=== PATIENT | male | born 1975 | race Caucasian/White ===

== ENCOUNTER 2020-09-23 01:32 | Inpatient (IN) ==
[2020-09-23] MEDS ORDERED: ENOXAPARIN 120 MG/0.8 ML SYRINGE SUBCUT STA (01:45)
[2020-09-23] MEDS ORDERED: DEXTROSE 50% 25 GM/50 ML VIAL IV PRN (02:53)
[2020-09-23] MEDS ORDERED: NICOTINE 21 MG/24 HR PATCH TRANSDERM PRN (02:53)
[2020-09-23] MEDS ORDERED: ONDANSETRON 4 MG/2 ML VIAL IV PRN (02:53)
[2020-09-23] MEDS ORDERED: GLUCAGON 1 MG VIAL IM PRN (02:53)
[2020-09-23] MEDS: MORPHINE 4 MG/1 ML VIAL IV PRN (03:05)
[2020-09-23] MEDS ORDERED: DEXTROSE 50% 25 GM/50 ML SYRINGE IV PRN (03:21)
[2020-09-23 05:45] LABS: Basophils # 0.1 10*3/uL (0.0-0.2); Basophils % 0.5 % (0.0-0.8); Eosinophils # 0.2 10*3/uL (0.0-0.87); Eosinophils % 1.4 % (0.00-10.9); Hematocrit 43.5 VOL% (42.0-52.0); Hemoglobin 13.9 GM/DL (14.0-18.0); Immature Granulocytes % 0.5 %; Immature Granulocytes Absolute 0.05 #; Lymphocytes % 27.3 % (21.2-54.2); Mean Corpuscular Volume 93.3 FL (87-102); Monocytes % 5.1 % (1.7-12.7); Neutrophils % 65.2 % (38.7-73.9); Platelet Count 252 T/CUMM (130-400); Red Blood Count 4.66 MC/CUMM (3.8-5.5); Red Cell Distribution Width 14.4 % (9.3-17.3); White Blood Count 11.1 T/CUMM (4-12)
[2020-09-23 06:01] LABS: Albumin 3.5 G/DL (3.4-5.0); Bilirubin,Total 0.7 MG/DL (0.2-1.0); Osmolality,Calculated 281.4 MOS/KG (273-304); Risk Ratio 2.38; Thyroid Stimulating Hormone 4.97 uIU/ml (0.358-3.74); Total Protein 6.9 G/DL (6.4-8.3); VLDL CHOLESTEROL 20.4 MG/DL
[2020-09-23] MEDS ORDERED: ASPIRIN CHEW 81 MG TABLET PO SCH (09:00)
[2020-09-23] MEDS: carvediloL 3.125 MG TABLET PO SCH ×2 (09:42→17:15)
[2020-09-23] MEDS: FUROSEMIDE 40 MG/4 ML VIAL IV SCH ×2 (09:42→15:18)
[2020-09-23] MEDS: ATORVASTATIN 40 MG TABLET PO SCH (09:42)
[2020-09-23] MEDS: ASPIRIN EC 81 MG TABLET PO SCH (09:42)
[2020-09-23] MEDS: SACUBITRIL/VALSARTAN 49-51 MG TABLET PO SCH ×2 (09:43→20:55)
[2020-09-23] MEDS: NITROGLYCERIN 2% OINT 1 INCH/GM PACK TOP SCH ×3 (11:27→23:04)
[2020-09-23 11:34] LABS: Barbiturates Screen,Urine Negative (Negative); Benzodiazepines Screen,Urine Negative (Negative); Cannabinoid Screen,Urine Negative (Negative); Opiate Screen,Urine Negative (Negative); Phencyclidine Screen,Urine Negative (Negative)
[2020-09-23] MEDS: ENOXAPARIN 100 MG/ML SYRINGE SUBCUT SCH (15:18)
[2020-09-24] MEDS: ENOXAPARIN 100 MG/ML SYRINGE SUBCUT SCH ×2 (02:37→15:42)
[2020-09-24] MEDS: NITROGLYCERIN 2% OINT 1 INCH/GM PACK TOP SCH ×3 (06:11→17:02)
[2020-09-24 07:33] LABS: Calcium 8.6 MG/DL (8.5-10.1); Osmolality,Calculated 274.8 MOS/KG (273-304)
[2020-09-24 08:38] LABS: Free T4 (Free Thyroxine) 1.21 NG/DL (0.76-1.46); Thyroid Stimulating Hormone 3.62 uIU/ml (0.358-3.74)
[2020-09-24] MEDS: FUROSEMIDE 40 MG/4 ML VIAL IV SCH ×2 (08:57→15:42)
[2020-09-24] MEDS: carvediloL 6.25 MG TABLET PO SCH ×2 (09:05→17:02)
[2020-09-24] MEDS: ATORVASTATIN 40 MG TABLET PO SCH (09:05)
[2020-09-24] MEDS: ASPIRIN EC 81 MG TABLET PO SCH (09:05)
[2020-09-24] MEDS: SACUBITRIL/VALSARTAN 49-51 MG TABLET PO SCH ×2 (09:05→21:47)
[2020-09-24] MEDS ORDERED: HYOSCYAMINE 0.125 MG TABLET PO PRN (11:51)
[2020-09-24] MEDS: NICOTINE 21 MG/24 HR PATCH TRANSDERM SCH (12:07)
[2020-09-25] MEDS: NITROGLYCERIN 2% OINT 1 INCH/GM PACK TOP SCH ×3 (00:48→21:52)
[2020-09-25] MEDS: ENOXAPARIN 100 MG/ML SYRINGE SUBCUT SCH ×2 (04:57→17:52)
[2020-09-25 06:02] LABS: Basophils # 0.1 10*3/uL (0.0-0.2); Basophils % 0.8 % (0.0-0.8); Eosinophils # 0.3 10*3/uL (0.0-0.87); Hemoglobin 16.9 GM/DL (14.0-18.0); Immature Granulocytes % 0.9 %; Immature Granulocytes Absolute 0.08 #; Lymphocytes # 2.3 10*3/uL (1.4-4.0); Lymphocytes % 25.4 % (21.2-54.2); Mean Corpuscular HGB Conc 33.1 GM/DL (32-36); Mean Corpuscular Volume 89.6 FL (87-102); Mean Platelet Volume 10.9 FL (9.6-12.0); Monocytes % 7.9 % (1.7-12.7); Platelet Count 247 T/CUMM (130-400); Red Blood Count 5.69 MC/CUMM (3.8-5.5); White Blood Count 8.9 T/CUMM (4-12)
[2020-09-25 06:20] LABS: Calcium 8.6 MG/DL (8.5-10.1); Osmolality,Calculated 277.7 MOS/KG (273-304)
[2020-09-25] MEDS ORDERED: POTASSIUM CHLORIDE 20 MEQ TABLET PO PRN (07:32)
[2020-09-25] MEDS ORDERED: POTASSIUM CHLORIDE 20 MEQ TABLET PO ONE (07:45)
[2020-09-25] MEDS: ATORVASTATIN 40 MG TABLET PO SCH (08:58)
[2020-09-25] MEDS: carvediloL 12.5 MG TABLET PO SCH ×2 (08:59→17:51)
[2020-09-25] MEDS: FUROSEMIDE 40 MG/4 ML VIAL IV SCH ×2 (08:59→17:52)
[2020-09-25] MEDS: ASPIRIN EC 81 MG TABLET PO SCH (08:59)
[2020-09-25] MEDS: NICOTINE 21 MG/24 HR PATCH TRANSDERM SCH (09:02)
[2020-09-25] MEDS: SACUBITRIL/VALSARTAN 49-51 MG TABLET PO SCH ×2 (09:04→21:40)
[2020-09-25] MEDS ORDERED: POTASSIUM CHLORIDE RIDER 10 MEQ in PREMIX 1 EACH IV PRN (13:29)
[2020-09-25] MEDS ORDERED: MAGNESIUM SULF RIDER 2 GM in PREMIX 1 EACH IV PRN (13:29)
[2020-09-25] MEDS: ISOSORBIDE MONONITRATE 30 MG TABLET PO SCH (17:51)
[2020-09-25] MEDS: MORPHINE 4 MG/1 ML VIAL IV PRN ×2 (20:29→23:51)
[2020-09-25] MEDS: buPROPion SR 100 MG TABLET PO SCH (21:40)
[2020-09-26] MEDS: MORPHINE 4 MG/1 ML VIAL IV PRN ×2 (04:20→20:00)
[2020-09-26 06:15] LABS: Basophils # 0.1 10*3/uL (0.0-0.2); Eosinophils # 0.3 10*3/uL (0.0-0.87); Eosinophils % 2.6 % (0.00-10.9); Hematocrit 52.1 VOL% (42.0-52.0); Hemoglobin 17.3 GM/DL (14.0-18.0); Immature Granulocytes % 0.7 %; Immature Granulocytes Absolute 0.07 #; Lymphocytes # 3.1 10*3/uL (1.4-4.0); Lymphocytes % 29.2 % (21.2-54.2); Mean Corpuscular HGB Conc 33.2 GM/DL (32-36); Mean Platelet Volume 10.6 FL (9.6-12.0); Monocytes % 8.3 % (1.7-12.7); Neutrophils % 58.2 % (38.7-73.9); Platelet Count 277 T/CUMM (130-400); Red Blood Count 5.79 MC/CUMM (3.8-5.5); Red Cell Distribution Width 14.2 % (9.3-17.3); White Blood Count 10.5 T/CUMM (4-12)
[2020-09-26 06:33] LABS: Calcium 9.2 MG/DL (8.5-10.1); Calcium 9.3 MG/DL (8.5-10.1); Osmolality,Calculated 273.8 MOS/KG (273-304); Osmolality,Calculated 275.7 MOS/KG (273-304)
[2020-09-26 06:39] LABS: Eosinophils 3 % (0-10); Hypochromasia 1+; Lymphocytes 24 % (20-55); Microcytosis 1+; Platelet Estimate Adequate; Segmented Neutrophils 66 % (50-85); Total Cells Counted 100
[2020-09-26] MEDS ORDERED: MAGNESIUM SULF RIDER 2 GM in PREMIX 1 EACH IV PRN (08:48)
[2020-09-26] MEDS ORDERED: POTASSIUM CHLORIDE RIDER 10 MEQ in PREMIX 1 EACH IV PRN (08:48)
[2020-09-26] MEDS: ASPIRIN EC 81 MG TABLET PO SCH (09:11)
[2020-09-26] MEDS: ISOSORBIDE MONONITRATE 30 MG TABLET PO SCH (09:11)
[2020-09-26] MEDS: FUROSEMIDE 40 MG TABLET PO SCH (09:11)
[2020-09-26] MEDS: carvediloL 12.5 MG TABLET PO SCH ×2 (09:11→17:14)
[2020-09-26] MEDS: SACUBITRIL/VALSARTAN 49-51 MG TABLET PO SCH ×2 (09:12→20:41)
[2020-09-26] MEDS: ATORVASTATIN 40 MG TABLET PO SCH (09:12)
[2020-09-26] MEDS: buPROPion SR 100 MG TABLET PO SCH (09:12)
[2020-09-26] MEDS: ENOXAPARIN 100 MG/ML SYRINGE SUBCUT SCH ×2 (09:15→20:41)
[2020-09-26] MEDS: NICOTINE 21 MG/24 HR PATCH TRANSDERM SCH (09:16)
[2020-09-26] MEDS: buPROPion SR 150 MG TABLET PO SCH (20:41)
[2020-09-27] MEDS: MORPHINE 4 MG/1 ML VIAL IV PRN ×2 (00:28→03:37)
[2020-09-27] MEDS ORDERED: MORPHINE 4 MG/1 ML VIAL ONE (03:30)
[2020-09-27 05:11] LABS: Basophils # 0.1 10*3/uL (0.0-0.2); Basophils % 1.1 % (0.0-0.8); Eosinophils # 0.3 10*3/uL (0.0-0.87); Eosinophils % 2.9 % (0.00-10.9); Hematocrit 52.5 VOL% (42.0-52.0); Immature Granulocytes % 0.6 %; Immature Granulocytes Absolute 0.06 #; Lymphocytes # 3.1 10*3/uL (1.4-4.0); Lymphocytes % 29.3 % (21.2-54.2); Mean Corpuscular HGB Conc 32.4 GM/DL (32-36); Mean Corpuscular Volume 91.5 FL (87-102); Mean Platelet Volume 10.5 FL (9.6-12.0); Monocytes % 9.9 % (1.7-12.7); Neutrophils % 56.2 % (38.7-73.9); Platelet Count 261 T/CUMM (130-400); Red Blood Count 5.74 MC/CUMM (3.8-5.5); Red Cell Distribution Width 14.1 % (9.3-17.3); White Blood Count 10.4 T/CUMM (4-12)
[2020-09-27 05:29] LABS: Calcium 9.5 MG/DL (8.5-10.1); Osmolality,Calculated 276.7 MOS/KG (273-304)
[2020-09-27 05:37] LABS: Eosinophils 5 % (0-10); Lymphocytes 29 % (20-55); Platelet Estimate Adequate; Segmented Neutrophils 60 % (50-85); Total Cells Counted 100
[2020-09-27] MEDS ORDERED: SODIUM CHLORIDE 0.9% 1,000 ML IV SCH (08:30)
[2020-09-27] MEDS: carvediloL 12.5 MG TABLET PO SCH ×2 (10:43→17:38)
[2020-09-27] MEDS: NICOTINE 21 MG/24 HR PATCH TRANSDERM SCH (10:43)
[2020-09-27] MEDS: ASPIRIN EC 81 MG TABLET PO SCH (10:43)
[2020-09-27] MEDS ORDERED: DIAZEPAM 5 MG TABLET PO ONE (12:00)
[2020-09-27] MEDS ORDERED: diphenhydrAMINE CAP 25 MG CAPSULE PO ONE (12:00)
[2020-09-27] MEDS ORDERED: HEPARIN/NACL 0.9% 2 UNITS/ML 1,000 ML IV ONE (14:36)
[2020-09-27] MEDS ORDERED: LIDOCAINE 1%/EPI INJ 20 ML VIAL ONE (14:36)
[2020-09-27] MEDS ORDERED: fentaNYL 100 MCG/2 ML VIAL ONE (14:58)
[2020-09-27] MEDS ORDERED: MIDAZOLAM 2 MG/2 ML VIAL ONE ×2 (14:58→15:11)
[2020-09-27] MEDS: NICOTINE 7 MG/24 HR PATCH TRANSDERM SCH (16:11)
[2020-09-27] MEDS: ENOXAPARIN 100 MG/ML SYRINGE SUBCUT SCH ×2 (16:24→21:47)
[2020-09-27] MEDS: ISOSORBIDE MONONITRATE 30 MG TABLET PO SCH (16:25)
[2020-09-27] MEDS: SACUBITRIL/VALSARTAN 49-51 MG TABLET PO SCH ×2 (16:26→21:47)
[2020-09-27] MEDS: ATORVASTATIN 40 MG TABLET PO SCH (16:26)
[2020-09-27] MEDS: buPROPion SR 150 MG TABLET PO SCH (16:26)
[2020-09-27] MEDS: FUROSEMIDE 40 MG TABLET PO SCH (16:26)
[2020-09-27] MEDS: buPROPion SR 100 MG TABLET PO SCH (21:48)
[2020-09-28 04:09] LABS: Basophils # 0.1 10*3/uL (0.0-0.2); Basophils % 0.8 % (0.0-0.8); Eosinophils # 0.3 10*3/uL (0.0-0.87); Eosinophils % 3.4 % (0.00-10.9); Hematocrit 47.8 VOL% (42.0-52.0); Hemoglobin 15.5 GM/DL (14.0-18.0); Immature Granulocytes % 0.5 %; Immature Granulocytes Absolute 0.05 #; Lymphocytes # 2.9 10*3/uL (1.4-4.0); Lymphocytes % 29.9 % (21.2-54.2); Mean Corpuscular HGB Conc 32.4 GM/DL (32-36); Mean Corpuscular Volume 91.6 FL (87-102); Mean Platelet Volume 11.2 FL (9.6-12.0); Monocytes % 8.1 % (1.7-12.7); Neutrophils % 57.3 % (38.7-73.9); Platelet Count 250 T/CUMM (130-400); Red Blood Count 5.22 MC/CUMM (3.8-5.5); Red Cell Distribution Width 13.9 % (9.3-17.3); White Blood Count 9.7 T/CUMM (4-12)
[2020-09-28 04:35] LABS: Calcium 8.8 MG/DL (8.5-10.1); Osmolality,Calculated 275.7 MOS/KG (273-304)
[2020-09-28 05:17] LABS: Calcium 8.9 MG/DL (8.5-10.1); Osmolality,Calculated 273.8 MOS/KG (273-304)
[2020-09-28] MEDS: ISOSORBIDE MONONITRATE 30 MG TABLET PO SCH (09:33)
[2020-09-28] MEDS: buPROPion SR 100 MG TABLET PO SCH (09:33)
[2020-09-28] MEDS: carvediloL 12.5 MG TABLET PO SCH (09:33)
[2020-09-28] MEDS: FUROSEMIDE 40 MG TABLET PO SCH (09:33)
[2020-09-28] MEDS: ASPIRIN EC 81 MG TABLET PO SCH (09:33)
[2020-09-28] MEDS: SACUBITRIL/VALSARTAN 49-51 MG TABLET PO SCH (09:33)
[2020-09-28] MEDS: ATORVASTATIN 40 MG TABLET PO SCH (09:33)
[2020-09-28] MEDS: NICOTINE 7 MG/24 HR PATCH TRANSDERM SCH (09:34)
[2020-09-28] MEDS: ENOXAPARIN 100 MG/ML SYRINGE SUBCUT SCH (09:35)
[2020-09-28] MEDS: NICOTINE 21 MG/24 HR PATCH TRANSDERM SCH (09:35)
[2020-09-28 13:04] VITALS: BP 132/92
== END 2020-09-28 14:00 | disposition home or self-care (01) | DRG 286 ==
LOC: N.ED 01:32 → N.EDINP 01:32 → SUATTDRO 02:53 → N.TELES 04:15
PROVIDERS: ADMIT Internal Medicine; ATTEND Hospitalist

== ENCOUNTER 2022-05-10 03:04 | Inpatient (IN) ==
[2022-05-10] MEDS ORDERED: ASPIRIN 325 MG TABLET PO STA (03:19)
[2022-05-10] MEDS ORDERED: MORPHINE 2 MG/1 ML SYRINGE IV STA (03:19)
[2022-05-10] MEDS ORDERED: ONDANSETRON 4 MG/2 ML VIAL IV STA (03:19)
[2022-05-10] MEDS ORDERED: ALBUTEROL/IPRATROPIUM 3 ML NEB RESP TX STA (03:19)
[2022-05-10] MEDS ORDERED: FUROSEMIDE 100 MG/10 ML VIAL IV STA (03:19)
[2022-05-10] MEDS ORDERED: NITROGLYCERIN 2% OINT 1 INCH/GM PACK TOP STA (03:19)
[2022-05-10] MEDS ORDERED: LABETALOL 20 MG/4 ML SYRINGE IV STA (03:19)
[2022-05-10 03:27] LABS: Basophils % 0.6 % (0.0-0.8); Eosinophils # 0.1 10*3/uL (0.0-0.87); Eosinophils % 1.3 % (0.00-10.9); Hematocrit 44.4 VOL% (42.0-52.0); Hemoglobin 14.7 GM/DL (14.0-18.0); Immature Granulocytes % 0.5 %; Immature Granulocytes Absolute 0.03 #; Lymphocytes # 0.4 10*3/uL (1.4-4.0); Lymphocytes % 6.3 % (21.2-54.2); Mean Corpuscular HGB Conc 33.1 GM/DL (32-36); Mean Corpuscular Volume 90.6 FL (87-102); Mean Platelet Volume 10.3 FL (9.6-12.0); Monocytes # 0.6 10*3/uL (0.11-0.8); Neutrophils % 82.3 % (38.7-73.9); Platelet Count 221 T/CUMM (130-400); Red Cell Distribution Width 13.8 % (9.3-17.3); White Blood Count 6.3 T/CUMM (4-12)
[2022-05-10 03:39] LABS: Arterial Base Excess iSTAT 2 MMOL/L (-2.5-2.5); Arterial O2 Saturation iSTAT 98 % (95-100); Arterial PCO2 iSTAT 34 MM HG (35-48); Arterial PO2 iSTAT 101 MM HG (80-95); Arterial Total CO2 iSTAT 26 MMO/L (23-27); Arterial pH iSTAT 7.471 (7.35-7.45)
[2022-05-10] MEDS ORDERED: DILTIAZEM 25 MG/5 ML VIAL IV ONE (03:48)
[2022-05-10 03:50] LABS: Albumin 3.7 G/DL (3.4-5.0); Bilirubin,Total 0.4 MG/DL (0.20-1.00); Calcium 9.3 MG/DL (8.5-10.1); Potassium 3.7 MMOL/L (3.5-5.1); Total Protein 7.7 G/DL (6.4-8.2)
[2022-05-10] MEDS ORDERED: DILTIAZEM 25 MG/5 ML VIAL IV STA (03:55)
[2022-05-10 04:10] LABS: Bilirubin,Urine Negative (Negative); Blood, Urine Negative (Negative); Glucose,Urine (UA) Negative (Negative); Ketones,Urine Negative (Negative); Nitrite,Urine Negative (Negative); Protein,Urine Negative (Negative); Urine Appearance Clear (Clear); Urine Color Yellow (Yellow); Urine Specific Gravity 1.025 (1.001-1.035); Urine Urobilinogen 0.2 eU/dL (<2.0)
[2022-05-10 04:13] LABS: Bacteria,Urine Occasional /HPF (Few)
[2022-05-10 04:23] LABS: Barbiturates Screen,Urine Negative (Negative); Benzodiazepines Screen,Urine Negative (Negative); Cannabinoid Screen,Urine Negative (Negative); Opiate Screen,Urine Positive (Negative); Phencyclidine Screen,Urine Negative (Negative)
[2022-05-10] MEDS ORDERED: ENOXAPARIN 100 MG/ML SYRINGE SUBCUT STA (04:53)
[2022-05-10] MEDS ORDERED: hydrALAZINE 20 MG/1 ML VIAL IV PRN (06:10)
[2022-05-10] MEDS ORDERED: ACETAMINOPHEN 325 MG TABLET PO PRN (06:10)
[2022-05-10] MEDS ORDERED: DEXTROSE 10% 250 ML BAG IV PRN (06:10)
[2022-05-10] MEDS ORDERED: ONDANSETRON 4 MG/2 ML VIAL IV PRN (06:10)
[2022-05-10] MEDS ORDERED: GLUCAGON 1 MG VIAL IM PRN (06:10)
[2022-05-10] MEDS ORDERED: MORPHINE 2 MG/1 ML SYRINGE IV PRN (06:10)
[2022-05-10] MEDS ORDERED: MAGNESIUM SULF RIDER 2 GM/50 ML PREMIX IV ONE (06:10)
[2022-05-10] MEDS ORDERED: NICOTINE 21 MG/24 HR PATCH TRANSDERM PRN (06:10)
[2022-05-10 06:50] LABS: Risk Ratio 2.95; Thyroid Stimulating Hormone 3.77 uIU/ml (0.358-3.74); VLDL Cholesterol 22.6 MG/DL
[2022-05-10] MEDS: LEVALBUTEROL 1.25 MG/3 ML NEB RESP TX SCH ×4 (07:42→23:40)
[2022-05-10] MEDS: IPRATROPIUM 500 MCG/2.5 ML NEB RESP TX SCH ×4 (07:42→23:40)
[2022-05-10] MEDS: PANTOPRAZOLE 40 MG TABLET PO SCH (12:21)
[2022-05-10] MEDS: FUROSEMIDE 40 MG/4 ML VIAL IV SCH (16:24)
[2022-05-10] MEDS: METOPROLOL TARTRATE 25 MG TABLET PO SCH (22:09)
[2022-05-11 05:00] LABS: Basophils % 0.5 % (0.0-0.8); Eosinophils % 0.2 % (0.00-10.9); Hematocrit 45.6 VOL% (42.0-52.0); Immature Granulocytes % 0.7 %; Immature Granulocytes Absolute 0.03 #; Lymphocytes # 1.3 10*3/uL (1.4-4.0); Lymphocytes % 29.8 % (21.2-54.2); Mean Corpuscular HGB Conc 32.9 GM/DL (32-36); Mean Corpuscular Volume 89.9 FL (87-102); Mean Platelet Volume 10.6 FL (9.6-12.0); Monocytes # 0.8 10*3/uL (0.11-0.8); Neutrophils % 50.8 % (38.7-73.9); Platelet Count 221 T/CUMM (130-400); Red Blood Count 5.07 MC/CUMM (3.8-5.5); Red Cell Distribution Width 14.2 % (9.3-17.3); White Blood Count 4.4 T/CUMM (4-12)
[2022-05-11 05:12] LABS: Calcium 8.7 MG/DL (8.5-10.1); Osmolality,Calculated 274.1 MOS/KG (273-304); Potassium 3.3 MMOL/L (3.5-5.1)
[2022-05-11 05:27] LABS: Lymphocytes 38 % (20-55); Platelet Estimate Normal; Total Cells Counted 100
[2022-05-11] MEDS ORDERED: ENOXAPARIN 40 MG/0.4 ML SYRINGE SUBCUT SCH (06:00)
[2022-05-11] MEDS: LEVALBUTEROL 1.25 MG/3 ML NEB RESP TX SCH (07:07)
[2022-05-11] MEDS: IPRATROPIUM 500 MCG/2.5 ML NEB RESP TX SCH (07:07)
[2022-05-11] MEDS ORDERED: POTASSIUM CHLORIDE 20 MEQ TABLET PO ONE ×2 (08:00→10:56)
[2022-05-11 08:14] VITALS: BP 108/67
[2022-05-11] MEDS ORDERED: ATORVASTATIN 40 MG TABLET PO SCH (09:00)
[2022-05-11] MEDS ORDERED: ASPIRIN EC 81 MG TABLET PO SCH (09:00)
[2022-05-11] MEDS ORDERED: SPIRONOLACTONE 25 MG TABLET PO SCH (09:00)
[2022-05-11] MEDS ORDERED: VALSARTAN 80 MG TABLET PO SCH (09:00)
[2022-05-11] MEDS: METOPROLOL TARTRATE 25 MG TABLET PO SCH (09:30)
[2022-05-11] MEDS: PANTOPRAZOLE 40 MG TABLET PO SCH (09:30)
[2022-05-11] MEDS: FUROSEMIDE 40 MG/4 ML VIAL IV SCH (09:31)
[2022-05-11] MEDS ORDERED: carvediloL 6.25 MG TABLET PO SCH (21:00)
== END 2022-05-11 13:15 | disposition home or self-care (01) | DRG 291 ==
LOC: SUATTDRO → N.ED 03:04 → N.EDINP 06:12 → N.TELEN 09:48
PROVIDERS: ADMIT Emergency Medicine; ATTEND Emergency Medicine

== ENCOUNTER 2022-09-08 17:07 | Inpatient (IN) ==
[2022-09-08] MEDS ORDERED: FUROSEMIDE 40 MG/4 ML VIAL ONE ×2 (17:42→17:46)
[2022-09-08 17:46] LABS: Basophils # 0.1 10*3/uL (0.0-0.2); Basophils % 0.6 % (0.0-0.8); Eosinophils # 0.2 10*3/uL (0.0-0.87); Eosinophils % 1.8 % (0.00-10.9); Hemoglobin 13.9 GM/DL (14.0-18.0); Immature Granulocytes % 0.4 %; Immature Granulocytes Absolute 0.03 #; Lymphocytes # 2.4 10*3/uL (1.4-4.0); Lymphocytes % 28.7 % (21.2-54.2); Mean Corpuscular HGB Conc 32.3 GM/DL (32-36); Mean Corpuscular Volume 91.9 FL (87-102); Mean Platelet Volume 10.7 FL (9.6-12.0); Monocytes # 0.4 10*3/uL (0.11-0.8); Monocytes % 5.1 % (1.7-12.7); Neutrophils % 63.4 % (38.7-73.9); Platelet Count 245 T/CUMM (130-400); Red Blood Count 4.68 MC/CUMM (3.8-5.5); Red Cell Distribution Width 14.4 % (9.3-17.3); White Blood Count 8.4 T/CUMM (4-12)
[2022-09-08] MEDS ORDERED: NITROGLYCERIN 2% OINT 1 INCH/GM PACK TOP STA (17:47)
[2022-09-08] MEDS ORDERED: FUROSEMIDE 40 MG/4 ML VIAL IV STA (17:47)
[2022-09-08] MEDS ORDERED: ASPIRIN 325 MG TABLET PO STA (17:47)
[2022-09-08 17:57] LABS: PT Patient Result 11.4 SECS (10.1-12.1); Partial Thromboplastin Time 27.9 SECS (23.7-32.9)
[2022-09-08 18:01] LABS: Arterial Base Excess iSTAT 3 MMOL/L (-2.5-2.5); Arterial Bicarbonate iSTAT 28.6 MMOL/L (20-26); Arterial O2 Saturation iSTAT 95 % (95-100); Arterial PCO2 iSTAT 47 MM HG (35-48); Arterial PO2 iSTAT 80 MM HG (80-95); Arterial Total CO2 iSTAT 30 MMO/L (23-27); Arterial pH iSTAT 7.391 (7.35-7.45)
[2022-09-08 18:09] LABS: Albumin 3.6 G/DL (3.4-5.0); Bilirubin,Total 0.6 MG/DL (0.20-1.00); Calcium 9.2 MG/DL (8.5-10.1); Osmolality,Calculated 286.1 MOS/KG (273-304); Potassium 4.3 MMOL/L (3.5-5.1); Total Protein 7.5 G/DL (6.4-8.2)
[2022-09-08] MEDS ORDERED: VANCOMYCIN INJ 1,000 MG in SODIUM CHLORIDE 0.9% 250 ML IV STA (19:18)
[2022-09-08] MEDS ORDERED: PIPERACILLIN/TAZOBACTAM 3,375 MG in SODIUM CHLORIDE 0.9% 100 ML IV STA (19:18)
[2022-09-08] MEDS ORDERED: ENOXAPARIN 100 MG/ML SYRINGE SUBCUT STA (19:29)
[2022-09-08] MEDS ORDERED: NICOTINE 21 MG/24 HR PATCH TRANSDERM PRN (19:39)
[2022-09-08] MEDS ORDERED: ACETAMINOPHEN 325 MG TABLET PO PRN (20:32)
[2022-09-08] MEDS ORDERED: ONDANSETRON 4 MG/2 ML VIAL IV PRN (20:39)
[2022-09-08 21:18] LABS: Barbiturates Screen,Urine Negative (Negative); Benzodiazepines Screen,Urine Negative (Negative); Cannabinoid Screen,Urine Negative (Negative); Opiate Screen,Urine Negative (Negative); Phencyclidine Screen,Urine Negative (Negative)
[2022-09-08] MEDS: carvediloL 12.5 MG TABLET PO SCH (21:25)
[2022-09-08] MEDS: LOSARTAN 25 MG TABLET PO SCH (21:25)
[2022-09-09 00:29] LABS: Basophils # 0.1 10*3/uL (0.0-0.2); Basophils % 0.7 % (0.0-0.8); Eosinophils # 0.1 10*3/uL (0.0-0.87); Eosinophils % 1.2 % (0.00-10.9); Hematocrit 43.5 VOL% (42.0-52.0); Immature Granulocytes % 0.2 %; Immature Granulocytes Absolute 0.02 #; Lymphocytes # 2.3 10*3/uL (1.4-4.0); Lymphocytes % 27.6 % (21.2-54.2); Mean Corpuscular HGB Conc 32.2 GM/DL (32-36); Mean Corpuscular Volume 92.6 FL (87-102); Mean Platelet Volume 10.9 FL (9.6-12.0); Monocytes # 0.3 10*3/uL (0.11-0.8); Neutrophils % 66.3 % (38.7-73.9); Platelet Count 236 T/CUMM (130-400); Red Cell Distribution Width 14.2 % (9.3-17.3); White Blood Count 8.3 T/CUMM (4-12)
[2022-09-09 00:58] LABS: Calcium 9.3 MG/DL (8.5-10.1); Osmolality,Calculated 283.4 MOS/KG (273-304); Potassium 4.1 MMOL/L (3.5-5.1)
[2022-09-09 01:35] LABS: Reactive Lymphocytes Slight
[2022-09-09] MEDS ORDERED: ALBUTEROL/IPRATROPIUM 3 ML NEB RESP TX STA (04:36)
[2022-09-09] MEDS ORDERED: MORPHINE 2 MG/1 ML SYRINGE IV ONE (05:00)
[2022-09-09] MEDS: ALBUTEROL/IPRATROPIUM 3 ML NEB RESP TX SCH ×3 (07:19→20:02)
[2022-09-09] MEDS ORDERED: ENOXAPARIN 40 MG/0.4 ML SYRINGE SUBCUT SCH (09:00)
[2022-09-09] MEDS ORDERED: SPIRONOLACTONE 25 MG TABLET PO SCH (09:00)
[2022-09-09] MEDS: LOSARTAN 25 MG TABLET PO SCH (09:11)
[2022-09-09] MEDS: ASPIRIN EC 81 MG TABLET PO SCH (09:11)
[2022-09-09] MEDS: ATORVASTATIN 40 MG TABLET PO SCH (09:11)
[2022-09-09] MEDS: carvediloL 12.5 MG TABLET PO SCH (09:11)
[2022-09-09] MEDS: NICOTINE 14 MG/24 HR PATCH TRANSDERM SCH (09:12)
[2022-09-09] MEDS: FUROSEMIDE 40 MG/4 ML VIAL IV SCH ×2 (09:12→20:31)
[2022-09-09] MEDS ORDERED: carvediloL 12.5 MG TABLET PO ONE (12:57)
[2022-09-09] MEDS: carvediloL 25 MG TABLET PO SCH (20:44)
[2022-09-10] MEDS: ALBUTEROL/IPRATROPIUM 3 ML NEB RESP TX SCH ×4 (00:20→19:34)
[2022-09-10 04:55] LABS: Basophils # 0.1 10*3/uL (0.0-0.2); Basophils % 0.8 % (0.0-0.8); Eosinophils # 0.2 10*3/uL (0.0-0.87); Eosinophils % 2.5 % (0.00-10.9); Hematocrit 44.2 VOL% (42.0-52.0); Hemoglobin 14.2 GM/DL (14.0-18.0); Immature Granulocytes % 0.9 %; Immature Granulocytes Absolute 0.08 #; Lymphocytes # 2.2 10*3/uL (1.4-4.0); Lymphocytes % 24.4 % (21.2-54.2); Mean Corpuscular HGB Conc 32.1 GM/DL (32-36); Mean Corpuscular Volume 93.8 FL (87-102); Mean Platelet Volume 11.1 FL (9.6-12.0); Monocytes # 0.6 10*3/uL (0.11-0.8); Monocytes % 6.2 % (1.7-12.7); Neutrophils % 65.2 % (38.7-73.9); Platelet Count 246 T/CUMM (130-400); Red Blood Count 4.71 MC/CUMM (3.8-5.5); White Blood Count 8.8 T/CUMM (4-12)
[2022-09-10 05:12] LABS: Albumin 3.2 G/DL (3.4-5.0); Bilirubin,Total 0.4 MG/DL (0.20-1.00); Calcium 9.3 MG/DL (8.5-10.1); Osmolality,Calculated 283.4 MOS/KG (273-304); Potassium 3.7 MMOL/L (3.5-5.1)
[2022-09-10] MEDS: VALSARTAN 80 MG TABLET PO SCH (08:36)
[2022-09-10] MEDS: HEPARIN 5,000 UNIT/1 ML VIAL SUBCUT SCH ×2 (08:36→20:55)
[2022-09-10] MEDS: ATORVASTATIN 40 MG TABLET PO SCH (08:36)
[2022-09-10] MEDS: NICOTINE 14 MG/24 HR PATCH TRANSDERM SCH (08:36)
[2022-09-10] MEDS: ASPIRIN EC 81 MG TABLET PO SCH (08:36)
[2022-09-10] MEDS: carvediloL 25 MG TABLET PO SCH ×2 (08:36→20:53)
[2022-09-10] MEDS: SPIRONOLACTONE 25 MG TABLET PO SCH (08:36)
[2022-09-10] MEDS: FUROSEMIDE 40 MG/4 ML VIAL IV SCH (08:38)
[2022-09-11] MEDS: ALBUTEROL/IPRATROPIUM 3 ML NEB RESP TX SCH ×4 (00:37→19:29)
[2022-09-11] MEDS ORDERED: ZALEPLON 5 MG CAPSULE PO PRN (01:24)
[2022-09-11 04:58] LABS: Calcium 9.4 MG/DL (8.5-10.1); Osmolality,Calculated 278.7 MOS/KG (273-304); Potassium 4.1 MMOL/L (3.5-5.1)
[2022-09-11] MEDS ORDERED: FUROSEMIDE 40 MG TABLET PO SCH (09:00)
[2022-09-11] MEDS: DOCUSATE SODIUM 100 MG CAPSULE PO PRN (09:39)
[2022-09-11] MEDS: DOBUTamine 500 MG/250 ML PREMIX IV SCH ×3 (09:39→22:07)
[2022-09-11] MEDS: NICOTINE 14 MG/24 HR PATCH TRANSDERM SCH (09:40)
[2022-09-11] MEDS: carvediloL 25 MG TABLET PO SCH ×2 (09:40→20:40)
[2022-09-11] MEDS: ASPIRIN EC 81 MG TABLET PO SCH (09:40)
[2022-09-11] MEDS: HEPARIN 5,000 UNIT/1 ML VIAL SUBCUT SCH ×2 (09:40→20:40)
[2022-09-11] MEDS: FUROSEMIDE 40 MG/4 ML VIAL IV SCH ×2 (09:40→15:52)
[2022-09-11] MEDS: VALSARTAN 80 MG TABLET PO SCH (09:41)
[2022-09-11] MEDS: SPIRONOLACTONE 25 MG TABLET PO SCH (09:41)
[2022-09-11] MEDS: ATORVASTATIN 40 MG TABLET PO SCH (09:47)
[2022-09-11] MEDS: HYDROcodone/HOMATROPINE 5 ML UDCUP PO PRN ×2 (16:09→20:39)
[2022-09-12] MEDS: ALBUTEROL/IPRATROPIUM 3 ML NEB RESP TX SCH ×4 (00:51→19:21)
[2022-09-12] MEDS: HYDROcodone/HOMATROPINE 5 ML UDCUP PO PRN ×4 (04:35→18:31)
[2022-09-12 04:36] LABS: Basophils % 0.5 % (0.0-0.8); Eosinophils % 0.1 % (0.00-10.9); Hematocrit 47.1 VOL% (42.0-52.0); Hemoglobin 14.9 GM/DL (14.0-18.0); Immature Granulocytes % 0.5 %; Immature Granulocytes Absolute 0.04 #; Lymphocytes # 0.7 10*3/uL (1.4-4.0); Lymphocytes % 9.6 % (21.2-54.2); Mean Corpuscular HGB Conc 31.6 GM/DL (32-36); Mean Corpuscular Volume 93.8 FL (87-102); Mean Platelet Volume 10.6 FL (9.6-12.0); Monocytes # 0.8 10*3/uL (0.11-0.8); Monocytes % 10.7 % (1.7-12.7); Neutrophils % 78.6 % (38.7-73.9); Platelet Count 221 T/CUMM (130-400); Red Blood Count 5.02 MC/CUMM (3.8-5.5); Red Cell Distribution Width 14.3 % (9.3-17.3); White Blood Count 7.4 T/CUMM (4-12)
[2022-09-12 05:00] LABS: Albumin 3.4 G/DL (3.4-5.0); Bilirubin,Total 0.6 MG/DL (0.20-1.00); Calcium 8.9 MG/DL (8.5-10.1); Osmolality,Calculated 270.2 MOS/KG (273-304); Potassium 4.1 MMOL/L (3.5-5.1); Total Protein 7.8 G/DL (6.4-8.2)
[2022-09-12] MEDS: DOCUSATE SODIUM 100 MG CAPSULE PO PRN (09:05)
[2022-09-12] MEDS: ATORVASTATIN 40 MG TABLET PO SCH (09:05)
[2022-09-12] MEDS: VALSARTAN 80 MG TABLET PO SCH (09:05)
[2022-09-12] MEDS: carvediloL 25 MG TABLET PO SCH ×2 (09:05→21:38)
[2022-09-12] MEDS: ASPIRIN EC 81 MG TABLET PO SCH (09:05)
[2022-09-12] MEDS: SPIRONOLACTONE 25 MG TABLET PO SCH (09:05)
[2022-09-12] MEDS: NICOTINE 14 MG/24 HR PATCH TRANSDERM SCH (09:06)
[2022-09-12] MEDS: FUROSEMIDE 40 MG/4 ML VIAL IV SCH ×2 (09:06→16:36)
[2022-09-12] MEDS: HEPARIN 5,000 UNIT/1 ML VIAL SUBCUT SCH (09:07)
[2022-09-12] MEDS: DOBUTamine 500 MG/250 ML PREMIX IV SCH ×2 (10:27→21:45)
[2022-09-12] MEDS: predniSONE 10 MG TABLET PO SCH ×2 (10:29→21:38)
[2022-09-12] MEDS: ENOXAPARIN 30 MG/0.3 ML SYRINGE SUBCUT SCH (21:38)
[2022-09-13] MEDS: ALBUTEROL/IPRATROPIUM 3 ML NEB RESP TX SCH ×4 (00:24→19:21)
[2022-09-13 05:57] LABS: Basophils % 0.4 % (0.0-0.8); Hemoglobin 13.5 GM/DL (14.0-18.0); Immature Granulocytes % 0.6 %; Immature Granulocytes Absolute 0.03 #; Lymphocytes # 0.5 10*3/uL (1.4-4.0); Mean Corpuscular HGB Conc 31.4 GM/DL (32-36); Mean Corpuscular Volume 95.3 FL (87-102); Mean Platelet Volume 10.8 FL (9.6-12.0); Monocytes # 0.5 10*3/uL (0.11-0.8); Monocytes % 9.4 % (1.7-12.7); Neutrophils % 79.6 % (38.7-73.9); Platelet Count 184 T/CUMM (130-400); Red Blood Count 4.51 MC/CUMM (3.8-5.5); Red Cell Distribution Width 14.4 % (9.3-17.3)
[2022-09-13 06:20] LABS: Osmolality,Calculated 275.1 MOS/KG (273-304); Potassium 3.8 MMOL/L (3.5-5.1)
[2022-09-13] MEDS: carvediloL 25 MG TABLET PO SCH ×2 (09:29→21:14)
[2022-09-13] MEDS: SPIRONOLACTONE 25 MG TABLET PO SCH (09:29)
[2022-09-13] MEDS: ASPIRIN EC 81 MG TABLET PO SCH (09:29)
[2022-09-13] MEDS: predniSONE 10 MG TABLET PO SCH ×2 (09:29→21:15)
[2022-09-13] MEDS: ATORVASTATIN 40 MG TABLET PO SCH (09:29)
[2022-09-13] MEDS: VALSARTAN 80 MG TABLET PO SCH (09:30)
[2022-09-13] MEDS: DOBUTamine 500 MG/250 ML PREMIX IV SCH ×3 (09:30→20:45)
[2022-09-13] MEDS: NICOTINE 14 MG/24 HR PATCH TRANSDERM SCH (09:32)
[2022-09-13] MEDS: FUROSEMIDE 40 MG/4 ML VIAL IV SCH ×3 (09:40→16:11)
[2022-09-13] MEDS: HYDROcodone/HOMATROPINE 5 ML UDCUP PO PRN (16:15)
[2022-09-13] MEDS: ENOXAPARIN 30 MG/0.3 ML SYRINGE SUBCUT SCH (21:15)
[2022-09-14] MEDS: ALBUTEROL/IPRATROPIUM 3 ML NEB RESP TX SCH ×3 (01:01→14:39)
[2022-09-14 06:18] LABS: Alanine Aminotransferase 39 U/L (16-61); Alkaline Phosphatase 81 U/L (45-117); Aspartate Amino Transferase 43 U/L (0-37); Bilirubin,Total < 0.39 MG/DL (0.20-1.00); Blood Urea Nitrogen 23 MG/DL (7-18); Calcium 8.9 MG/DL (8.5-10.1); Carbon Dioxide 30 MMOL/L (21-32); Chloride 98 MMOL/L (98-107); Glucose 147 MG/DL (74-106); Osmolality,Calculated 274.2 MOS/KG (273-304); Potassium 3.9 MMOL/L (3.5-5.1); Sodium 134 MMOL/L (136-145); Total Protein 7.4 G/DL (6.4-8.2)
[2022-09-14] MEDS: DOBUTamine 500 MG/250 ML PREMIX IV SCH ×2 (08:03→10:58)
[2022-09-14] MEDS: ATORVASTATIN 40 MG TABLET PO SCH (09:05)
[2022-09-14] MEDS: NICOTINE 14 MG/24 HR PATCH TRANSDERM SCH (09:05)
[2022-09-14] MEDS: VALSARTAN 80 MG TABLET PO SCH (09:05)
[2022-09-14] MEDS: SPIRONOLACTONE 25 MG TABLET PO SCH (09:06)
[2022-09-14] MEDS: predniSONE 10 MG TABLET PO SCH (09:06)
[2022-09-14] MEDS: ASPIRIN EC 81 MG TABLET PO SCH (09:06)
[2022-09-14] MEDS: carvediloL 25 MG TABLET PO SCH (09:06)
[2022-09-14] MEDS: FUROSEMIDE 40 MG/4 ML VIAL IV SCH (09:07)
[2022-09-14] MEDS: HYDROcodone/HOMATROPINE 5 ML UDCUP PO PRN (09:07)
[2022-09-14] MEDS ORDERED: FUROSEMIDE 40 MG TABLET PO SCH (16:00)
[2022-09-14 16:21] VITALS: BP 127/66
== END 2022-09-14 16:48 | disposition home or self-care (01) | DRG 291 ==
LOC: N.ED 17:07 → N.EDINP 17:07 → N.TELEN 23:58
PROVIDERS: ADMIT Emergency Medicine; ATTEND Emergency Medicine

== ENCOUNTER 2022-11-26 14:00 | Inpatient (IN) ==
[2022-11-26] MEDS ORDERED: HYDROmorphone 1 MG/1 ML SYRINGE IV STA ×2 (15:12→16:46)
[2022-11-26] MEDS ORDERED: ONDANSETRON 4 MG/2 ML VIAL IV STA (15:12)
[2022-11-26 15:22] LABS: Basophils # 0.1 10*3/uL (0.0-0.2); Basophils % 0.7 % (0.0-0.8); Eosinophils # 0.2 10*3/uL (0.0-0.87); Eosinophils % 2.2 % (0.00-10.9); Hematocrit 49.1 VOL% (42.0-52.0); Hemoglobin 16.1 GM/DL (14.0-18.0); Immature Granulocytes % 0.5 %; Immature Granulocytes Absolute 0.04 #; Lymphocytes # 1.3 10*3/uL (1.4-4.0); Lymphocytes % 16.7 % (21.2-54.2); Mean Corpuscular HGB Conc 32.8 GM/DL (32-36); Mean Corpuscular Volume 89.4 FL (87-102); Mean Platelet Volume 10.1 FL (9.6-12.0); Monocytes # 0.6 10*3/uL (0.11-0.8); Monocytes % 7.4 % (1.7-12.7); Neutrophils % 72.5 % (38.7-73.9); Platelet Count 248 T/CUMM (130-400); Red Blood Count 5.49 MC/CUMM (3.8-5.5)
[2022-11-26 15:43] LABS: Albumin 3.6 G/DL (3.4-5.0); Bilirubin,Total 0.5 MG/DL (0.20-1.00); Calcium 8.9 MG/DL (8.5-10.1); Osmolality,Calculated 275.1 MOS/KG (273-304); Potassium 3.6 MMOL/L (3.5-5.1); Total Protein 8.1 G/DL (6.4-8.2)
[2022-11-26] MEDS ORDERED: hydrALAZINE 20 MG/1 ML VIAL IV PRN (17:07)
[2022-11-26] MEDS ORDERED: ONDANSETRON 4 MG/2 ML VIAL IV PRN (17:07)
[2022-11-26] MEDS ORDERED: ACETAMINOPHEN 325 MG TABLET PO PRN (17:07)
[2022-11-26] MEDS ORDERED: GLUCAGON 1 MG VIAL IM PRN (17:07)
[2022-11-26] MEDS ORDERED: DEXTROSE 10% 250 ML BAG IV PRN (17:18)
[2022-11-26 17:41] LABS: Risk Ratio 2.48; VLDL Cholesterol 23.4 MG/DL
[2022-11-26 17:47] LABS: Thyroid Stimulating Hormone 3.69 uIU/ml (0.358-3.74)
[2022-11-26] MEDS: VANCOMYCIN INJ 1,500 MG in SODIUM CHLORIDE 0.9% 500 ML IV SCH (19:08)
[2022-11-26 20:18] LABS: Barbiturates Screen,Urine Negative (Negative); Benzodiazepines Screen,Urine Negative (Negative); Cannabinoid Screen,Urine Positive (Negative); Opiate Screen,Urine Positive (Negative); Phencyclidine Screen,Urine Negative (Negative)
[2022-11-26] MEDS: FUROSEMIDE 20 MG TABLET PO SCH (20:34)
[2022-11-26] MEDS: DOCUSATE SODIUM 100 MG CAPSULE PO SCH (20:34)
[2022-11-26] MEDS: carvediloL 25 MG TABLET PO SCH (20:34)
[2022-11-26] MEDS: INSULIN LISPRO 100 UNIT/ML SUBCUT SCH (20:35)
[2022-11-26] MEDS: MORPHINE 2 MG/1 ML SYRINGE IV PRN (20:35)
[2022-11-26] MEDS: NICOTINE 14 MG/24 HR PATCH TRANSDERM SCH (22:32)
[2022-11-27] MEDS: MORPHINE 2 MG/1 ML SYRINGE IV PRN ×4 (01:13→20:27)
[2022-11-27] MEDS: VANCOMYCIN INJ 1,500 MG in SODIUM CHLORIDE 0.9% 500 ML IV SCH ×2 (05:20→18:13)
[2022-11-27 06:13] LABS: Basophils # 0.1 10*3/uL (0.0-0.2); Basophils % 0.7 % (0.0-0.8); Eosinophils # 0.3 10*3/uL (0.0-0.87); Eosinophils % 3.3 % (0.00-10.9); Hematocrit 45.5 VOL% (42.0-52.0); Immature Granulocytes % 0.5 %; Immature Granulocytes Absolute 0.04 #; Lymphocytes # 2.5 10*3/uL (1.4-4.0); Lymphocytes % 28.1 % (21.2-54.2); Mean Corpuscular Volume 90.8 FL (87-102); Mean Platelet Volume 10.4 FL (9.6-12.0); Monocytes # 0.9 10*3/uL (0.11-0.8); Neutrophils % 57.4 % (38.7-73.9); Platelet Count 257 T/CUMM (130-400); Red Blood Count 5.01 MC/CUMM (3.8-5.5); Red Cell Distribution Width 15.3 % (9.3-17.3); White Blood Count 8.8 T/CUMM (4-12)
[2022-11-27 06:41] LABS: Calcium 8.6 MG/DL (8.5-10.1); Osmolality,Calculated 272.1 MOS/KG (273-304); Potassium 4.1 MMOL/L (3.5-5.1)
[2022-11-27] MEDS ORDERED: LACTATED RINGERS 1,000 ML IV SCH (09:00)
[2022-11-27] MEDS ORDERED: MIDAZOLAM 2 MG/2 ML VIAL ONE (09:54)
[2022-11-27] MEDS ORDERED: fentaNYL 100 MCG/2 ML VIAL ONE (09:55)
[2022-11-27] MEDS ORDERED: BUPIVACAINE 0.5% 50 ML VIAL ONE (09:57)
[2022-11-27] MEDS ORDERED: propofoL 200 MG/20 ML VIAL IV ONE (10:14)
[2022-11-27] MEDS ORDERED: BACITRACIN OINT 0.9 GM PACK TOP ONE (10:14)
[2022-11-27] MEDS ORDERED: LIDOCAINE 2% 5 ML VIAL ONE (10:14)
[2022-11-27] MEDS ORDERED: KETAMINE 500 MG/10 ML VIAL ONE (10:15)
[2022-11-27] MEDS: INSULIN LISPRO 100 UNIT/ML SUBCUT SCH ×4 (11:44→21:57)
[2022-11-27] MEDS: carvediloL 25 MG TABLET PO SCH ×2 (13:02→20:28)
[2022-11-27] MEDS: ASPIRIN EC 81 MG TABLET PO SCH (13:02)
[2022-11-27] MEDS: DOCUSATE SODIUM 100 MG CAPSULE PO SCH ×2 (13:03→21:57)
[2022-11-27] MEDS: SPIRONOLACTONE 25 MG TABLET PO SCH (13:03)
[2022-11-27] MEDS: ATORVASTATIN 40 MG TABLET PO SCH (13:03)
[2022-11-27] MEDS: FUROSEMIDE 40 MG TABLET PO SCH (13:03)
[2022-11-27] MEDS: NICOTINE 14 MG/24 HR PATCH TRANSDERM SCH (13:04)
[2022-11-27] MEDS: VALSARTAN 80 MG TABLET PO SCH (13:07)
[2022-11-27] MEDS: FUROSEMIDE 20 MG TABLET PO SCH (20:28)
[2022-11-28] MEDS: MORPHINE 2 MG/1 ML SYRINGE IV PRN ×2 (00:22→04:20)
[2022-11-28] MEDS: VANCOMYCIN INJ 1,500 MG in SODIUM CHLORIDE 0.9% 500 ML IV SCH (05:16)
[2022-11-28 05:47] LABS: Basophils # 0.1 10*3/uL (0.0-0.2); Basophils % 0.8 % (0.0-0.8); Eosinophils # 0.3 10*3/uL (0.0-0.87); Eosinophils % 3.6 % (0.00-10.9); Hematocrit 43.9 VOL% (42.0-52.0); Hemoglobin 14.4 GM/DL (14.0-18.0); Immature Granulocytes % 0.5 %; Immature Granulocytes Absolute 0.04 #; Lymphocytes # 2.8 10*3/uL (1.4-4.0); Lymphocytes % 32.2 % (21.2-54.2); Mean Corpuscular HGB Conc 32.8 GM/DL (32-36); Mean Corpuscular Volume 92.8 FL (87-102); Mean Platelet Volume 10.4 FL (9.6-12.0); Monocytes # 0.8 10*3/uL (0.11-0.8); Monocytes % 9.2 % (1.7-12.7); Neutrophils % 53.7 % (38.7-73.9); Platelet Count 230 T/CUMM (130-400); Red Blood Count 4.73 MC/CUMM (3.8-5.5); White Blood Count 8.8 T/CUMM (4-12)
[2022-11-28 06:01] LABS: Calcium 8.4 MG/DL (8.5-10.1); Osmolality,Calculated 275.8 MOS/KG (273-304)
[2022-11-28 07:41] VITALS: BP 128/81
[2022-11-28] MEDS: INSULIN LISPRO 100 UNIT/ML SUBCUT SCH ×2 (08:22→12:26)
[2022-11-28] MEDS: VALSARTAN 80 MG TABLET PO SCH (08:55)
[2022-11-28] MEDS: ASPIRIN EC 81 MG TABLET PO SCH (08:55)
[2022-11-28] MEDS: carvediloL 25 MG TABLET PO SCH (08:56)
[2022-11-28] MEDS: DOCUSATE SODIUM 100 MG CAPSULE PO SCH (08:56)
[2022-11-28] MEDS: ATORVASTATIN 40 MG TABLET PO SCH (08:56)
[2022-11-28] MEDS: NICOTINE 14 MG/24 HR PATCH TRANSDERM SCH (08:57)
[2022-11-28] MEDS: FUROSEMIDE 40 MG TABLET PO SCH (08:57)
[2022-11-28] MEDS: SPIRONOLACTONE 25 MG TABLET PO SCH (08:57)
== END 2022-11-28 12:22 | disposition home or self-care (01) | DRG 256 ==
LOC: N.ED 14:00 → N.EDINP 17:07 → N.2E 18:48
PROVIDERS: ADMIT Hospitalist; ATTEND Hospitalist